=== PATIENT | male | born 1985 | race Caucasian/White ===

== ENCOUNTER 2018-03-05 05:55 | Day surgery (SDC) | payer OTHER ==
[2018-02-22 10:13] VITALS: BMI 25.1
[2018-03-05] MEDS ORDERED: LIDOCAINE 1%/EPI 1:100000 (20 ML MULTI DOSE VIAL) ONE (06:40)
[2018-03-05] MEDS ORDERED: COCAINE HCL 4% TOPICAL SOLUTION 4 ML BOTTLE TP ONE ×2 (06:40→07:42)
[2018-03-05] MEDS ORDERED: DEXAMETHASONE SOD PHOSPHATE 4 MG/1 ML VIAL ONE (06:58)
[2018-03-05] MEDS ORDERED: PROPOFOL 20 ML ONE ×4 (06:58→08:50)
[2018-03-05] MEDS ORDERED: SUCCINYLCHOLINE CHLORIDE 200 MG/10 ML VIAL ONE (06:58)
[2018-03-05] MEDS ORDERED: ROCURONIUM BROMIDE 50 MG/5 ML VIAL ONE (06:58)
[2018-03-05] MEDS ORDERED: ONDANSETRON 4 MG/2 ML VIAL ONE (06:58)
[2018-03-05] MEDS ORDERED: MIDAZOLAM HCL 2 MG/2 ML SINGLE DOSE VIAL ONE (06:58)
[2018-03-05] MEDS ORDERED: PROMETHAZINE HCL 25 MG/1 ML VIAL ONE (07:15)
[2018-03-05] MEDS ORDERED: LIDOCAINE 1%/EPI 1:100000 (20 ML MULTI DOSE VIAL) INF ONE (07:42)
[2018-03-05] MEDS ORDERED: NEOSTIGMINE METHYLSULFATE 0.5 MG/ML - 10 ML MDV ONE (09:11)
[2018-03-05] MEDS ORDERED: oxyCODONE HCL 5 MG TABLET PO PRN (09:41)
[2018-03-05] MEDS ORDERED: ACETAMINOPHEN 1000 MG/100 ML VIAL (NON FORMULARY) IVPB ONE (09:42)
[2018-03-05] MEDS ORDERED: LACTATED RINGERS SOLUTION 1,000 ML IV SCH (09:45)
--- NOTE | 2018-03-05 09:55 | OP ---
Operative Note - Note: Operative Date: 03/05/18 Pre-Operative Diagnosis: Right nasal mass. Chronic sinusitis. Deviated septum. Enlarged inferior turbinates Operation: Septoplasty. Inferior turbinate coblation. Biopsy of right nasal mass Findings: Vascular polypoid mass based posteriorly to the right middle turbinate Implants: surgicel packing Post-Operative Diagnosis: Same as Pre-op Surgeon: Tha Spencer Anesthesiologist/REVENUE CYCLE MANAGER: Xiao Waldron Anesthesia: General Specimens Removed: Biopsy of right nasal mass. Septal bone/cartilage Estimated Blood Loss (mls): 50 Operative Report Dictated: Yes
[2018-03-05 10:00] VITALS: TEMP 97.5
[2018-03-05] MEDS ORDERED: oxyCODONE HCL 5 MG TABLET ONE (11:01)
[2018-03-05 11:37] VITALS: BP 130/85; PULSE 72
--- NOTE | 2018-03-05 13:29 | OP ---
DATE OF OPERATION: 03/05/2018 PREOPERATIVE DIAGNOSES: Right intranasal mass, chronic sinusitis, deviated nasal septum and bilateral inferior turbinate hypertrophy. POSTOPERATIVE DIAGNOSES: Right intranasal mass, chronic sinusitis, deviated nasal septum and bilateral inferior turbinate hypertrophy. PROCEDURE: Biopsy of right intranasal mass, submucous resection of the nasal septum and bilateral inferior turbinate coblation. SURGEON: Tha Spencer MD ANESTHESIA: General endotracheal by Dr. Xiao Waldron INDICATION: The patient is a 32-year-old man with right>left nasal obstruction found to be due to a polypoid mass in the posterior right nasal cavity and chronic sinusitis that did not respond to medical management. He was noted to have a deviated septum on the right side obscuring full view of the mass and was also noted to have enlarged inferior turbinates. A CT scan revealed the presence of mucosal thickening and sinus disease in all of the right paranasal sinuses as well as the presence of the mass, which was noted to be somewhat vascular on the CT scan and was interpreted as a nasal polyp. The nature and purpose of the proposed procedure as well as the risks, benefits, alternatives and possible complications were discussed in detail with the patient who appeared to understand and wished to proceed with surgery. All questions were answered and an informed consent was given by the patient. PROCEDURE DESCRIPTION: With the patient under general endotracheal anesthesia in the supine position and the back slightly raised he was prepped and draped in the usual sterile fashion. The septum and right sinus region were injected with 6 mL of 1 % lidocaine with 1:100,000 epinephrine. The procedure was begun on the inferior turbinates which were noted to be somewhat enlarged. Bilateral inferior turbinate coblation was performed on an ablation setting of 6 and then the turbinates were bluntly outfractured. The septum was then addressed. A left-sided Miguel incision was made and a left mucosal flap was elevated intact. An oblique incision was made on the septal cartilage and through this a right mucosal flap was elevated intact. Deflected portions of septal bone and cartilage were resected, with hemostasis being achieved through suction cautery and then a drain hole was cut on the left side to allow egress of blood and secretions during the recovery period. Access was then afforded into the right posterior nasal cavity where a polypoid mass was noted to fill the posterior nasal cavity. It appeared to be based superiorly and medially and to be based posterior to the middle turbinate. It bled slightly even before it was instrumented just as the result of nasal pledgets packed against it. An attempt was made to resect the mass with a microdebrider, but brisk bleeding ensued and obscured proper visualization. Therefore, the decision was made to perform a biopsy only , and not continue further. A biopsy specimen was taken and the bleeding was controlled with a combination of suction cautery and packing, first with fibrillar Surgicel and then with plain Surgicel. This was able to control the bleeding adequately. The septum was then closed with septal bayron, and the incision was closed with 4-0 chromic suture. A nasal tip dressing was then placed and when the patient awakened he was extubated and discharged to the recovery room in satisfactory condition. The specimens were 2. First was a biopsy of the right nasal mass and the 2nd was septal bone and cartilage. There were no complications. The estimated blood loss was 50 mL. When he awakened, he was extubated he was discharged to the recovery room in satisfactory condition. THA SPENCER M.D. [id number] MTDD
--- NOTE | 2018-03-11 12:06 | PATH ---
Surgical Pathology Report Patient Name: JAQUELINE PRUITT Med. Rec. #: [id number] /Age/Gender: 1985 (Age: 32) / M Account: [id number] Location: [facility] Taken: 03/05/2018 Received: 03/05/2018 Reported: 03/11/2018 Physicians: Tha Spencer Specimen(s) Received A: NASAL SEPTUM B: RIGHT NASAL MASS Clinical History Right nasal polyp, deviated septum, chronic sinusitis Postoperative diagnosis: Same as preop except nasal polyp and some kind of vascular mass Final Diagnosis A. NASAL SEPTUM, SEPTOPLASTY: CARTILAGE AND BONE, CONSISTENT WITH NASAL SEPTUM. B. NASAL MASS, RIGHT, BIOPSY: INFLAMMATORY POLYP WITH GRANULATION TISSUE FORMATION , ADMIXED WITH BLOOD CLOT. Electronically Signed Radha Macias M.D. Gross Description A. Received in formalin labeled "nasal septum," is a 4.0 x 3.0 x 0.2 cm aggregate of davis, irregular portions of cartilage and bone, consistent with nasal septum. Stacking Machine Operator sections are submitted in one cassette, following decalcification. B. Received in formalin labeled "right nasal mass," is a 1.4 x 1.1 x 0.3 cm aggregate of davis brown soft tissue fragments admixed with blood clot. The specimen is entirely submitted in one cassette. 03/06/201803/06/2018
== END 2018-03-05 11:35 | disposition home or self-care (01) ==
LOC: FASU 05:55
PROVIDERS: ATTEND Otolaryngology
PROC: 09BL0ZZ Excision of Nasal Turbinate, Open Approach (ICD-10-PCS; 2018-03-05)
PROC: 09BK0ZX Excision of Nasal Mucosa and Soft Tissue, Open Approach, Diagnostic (ICD-10-PCS; 2018-03-05)
PROC: 09BM0ZZ Excision of Nasal Septum, Open Approach (ICD-10-PCS; principal; 2018-03-05 07:30)
DX: J32.8 Other chronic sinusitis (principal); J34.2 Deviated nasal septum; J34.3 Hypertrophy of nasal turbinates
CPT/HCPCS: 88302-TC; 88305-TC; 88311-TC; 94760; J0131